=== PATIENT | male | born 1975 | race Caucasian/White ===

== ENCOUNTER 2016-08-10 17:04 | Emergency (ER) | payer OTHER ==
[2016-08-10] MEDS ORDERED: ALPRAZolam 0.5 MG TABLET PO ONE (17:34)
[2016-08-10 18:22] LABS: BASOPHILS 0.5 % (0.0-2.0); EOSINOPHILS 2.6 % (0.0-6.0); EOSINOPHILS# 0.2 X 10^3uL (0.0-0.4); HEMATOCRIT 45.2 % (42.0-54.0); HEMOGLOBIN 15.4 g/dL (14.0-18.0); LYMPHOCYTES 28.3 % (20.0-40.0); LYMPHOCYTES# 2.2 X 10^3uL (0.8-3.8); MEAN CELL VOLUME 88.1 fL (80.0-100.0); MEAN CORPUSCULAR HEMOGLOBIN 29.9 pg (29.0-35.0); MEAN PLATELET VOLUME 8.8 fL (7.4-10.4); MONOCYTES 7.4 % (2.0-10.0); MONOCYTES# 0.6 X 10^3uL (0.2-1.0); NEUTROPHILS 61.2 % (54.0-75.0); NEUTROPHILS# 4.7 X 10^3uL (2.6-6.7); PLATELET COUNT 323 X 10^3uL (130-440); RED BLOOD COUNT 5.13 X 10^6uL (4.20-6.10); RED CELL DISTRIBUTION WIDTH 11.7 % (11.5-14.5); WHITE BLOOD COUNT 7.7 X 10^3uL (3.9-10.7)
[2016-08-10 18:25] LABS: A/G RATIO 1.2; ALBUMIN 4.2 g/dL (3.5-5.0); ALKALINE PHOSPHATASE 55 U/L (38-126); ALT 32 U/L (21-72); AST 27 U/L (17-59); BILIRUBIN, TOTAL 0.7 mg/dL (0.2-1.3); BLOOD UREA NITROGEN 15 mg/dL (9-20); CALCIUM 9.3 mg/dL (8.4-10.2); CHLORIDE 104 mmol/L (98-107); EST GLOMERULAR FILTRATION RATE > 60 mL/min; GLUCOSE 94 mg/dL (70-100); POTASSIUM 3.6 mmol/L (3.5-5.1); SODIUM 140 mmol/L (137-145); TOTAL PROTEIN 7.6 g/dL (6.3-8.2)
--- NOTE | 2016-08-10 18:25 | CT REPORT ---
HISTORY: Altered mental status, disoriented COMPARISON: None. TECHNIQUE: Axial non-contrast images obtained from skull vertex through foramen magnum. Dose reduction technique was utilized. FINDINGS: BRAIN: There is no atrophy. No acute intracranial hemorrhage. No mass effect or hydrocephalus. There is n o CT evidence of infarction. BONES AND EXTRACRANIAL SOFT TISSUES: The orbits are unremarkable. The paranasal sinuses and mastoid air cells are clear. The calvarium is intact. IMPRESSION: Normal head CT. Final Electronic Signature: This report was electronically signed by Thiago Friedman MD on 08/10/2016 6:23 PM. sandra /
--- NOTE | 2016-08-10 20:48 | ER NURSING DOCUMENTATION ---
Nurse's Notes [facility] Name:Thiago Elkins Age:41 yrs Sex:Male :1975 Arrival Date:08/10/2016 Time:17:04 Bed3 Private MD:No PCP, Identified Diagnosis:Hyperventilation Syndrome;Panic Disorder Presentation: 08/10 17:09 Acuity: GARY 2 rh 17:14 Method Of Arrival: Private Vehicle sc1 17:15 Presenting complaint: Patient states: "passed out" in a parking lot. Transition of de1 care: patient was not received from another setting of care. Notified ED Physician of patient's arrival and CC Dr. Zarco notified. Care prior to arrival: Saline lock initiated. Glucose check. 92. 17:15 Method Of Arrival: EMS: 410 sc1 Triage Assessment: 17:10 Neuro: Reports a syncopal episode weakness. sc1 17:17 General: Appears in no apparent distress, well developed, well nourished, well groomed, sc1 Behavior is cooperative, pleasant. Pain: Denies pain. Historical: - Allergies: No known drug Allergies; - Home Meds: 1. cyclobenzaprine 10 mg oral tab 1 tab 3 times per day 2. escitalopram 10 mg oral tab 1 tab once daily 3. ketorolac 10 mg oral tab - Ebola Screening: : Patient negative for fever greater than or equal to 101.5 degrees Fahrenheit, and additional compatible Ebola Virus Disease symptoms. Patient denies exposure to infectious person. Patient denies travel to an Ebola-affected area in the 21 days before illness onset. No symptoms or risks identified at this time. . - Immunization history: Flu Vaccine. Screenin:56 Infectious Disease Risk None. Abuse screen: Denies threats or abuse. Nutritional sc1 screening: No deficits noted. Vital Signs: 17:02 BP 133 / 78 (auto/); sc1 17:04 Pulse Ox 89% ; sc1 20:41 BP 122 / 55; Pulse 78; Resp 18; Temp 98.4; Pulse Ox 94% on R/A; sc1 NIH Stroke Scale Scores: 17:10 NIHSS Score: 0 sc1 ED Course: 17:05 Patient arrived in ED. ds 17:05 No PCP, Identified is Private Physician. ds 17:08 Ferny Zarco MD is Attending Physician. be 17:09 Triage completed. rh 17:14 Eliana Dye, RN is Primary Nurse. [facility] [place] 17:18 Notified ED Physician of patient's arrival and chief complaint. Dr. Zarco. Arm band sc1 placed on Bed in low position Call Light in Reach Gowned HOB Elevated Side rails up x2. Labs ordered per protocol. 18:[address] 20:41 Discontinued IV intact, bleeding controlled, pressure dressing applied, No sc1 redness/swelling at site. Administered Medications: 17:27 Drug: Xanax Tablet 0.25 mg; Route: PO; de1 08/11 10:32 Follow up: Response: No adverse reaction [facility] [place] 08/10 17:27 Drug: NS 0.9% 1000 ml; Route: IV; Rate: bolus; Site: right antecubital; Delivery: sc1 [place] Tubing; 18:37 Follow up: IV Status: Completed infusion; IV Intake: 1000ml de1 18:37 Drug: NS 0.9% 1000 ml; Route: IV; Rate: 250 ml/hr; Site: right antecubital; Delivery: sc1 [place] Tubing; 20:37 Follow up: IV Status: Completed infusion; IV Intake: 1000ml de1 Point of Care Testing: Urine Dip: 18:47 pH: 6.5; ; Specific [place]: 1.015; Ketones: Negative; Glucose: Negative; Protein: sc1 Negative; Leukocytes: Negative; Nitrite: Negative ; Blood: Negative; Bilirubin: Negative ; Urobilinogen: Normal Intake: 18:37 IV: 1000ml; Total: 1000ml. sc1 20:37 IV: 1000ml; Total: 2000ml. [facility] [place] Outcome: 18:16 Discharge ordered by . be 20:41 Discharged to home ambulatory. [facility] 20:41 Condition: improved 20:41 Discharge instructions given to patient, Instructed on discharge instructions, follow up and referral plans. medication usage, Demonstrated understanding of instructions, medications, Prescriptions given X 1. 20:47 Patient left the ED. [facility] [place] 08/11 11:40 Discharge F/U Call: Unable to reach: no answer NIH Stroke Scale - NIH Stroke Score Date: 08/10/2016 Time: 17:10 Total Score = 0 1a. Level of Consciousness (LOC) - 0(Alert) 1b. Level of Consciousness (LOC) (Year & Age) - 0(Both) 1c. LOC Commands (Open & Closes Eyes/Director And Professor) - 0(Both) 2. Best Gaze (Lateral Gaze Paresis) - 0(Normal) 3. Visual Field Loss - 0(No visual loss) 4. Facial Palsy - 0(Normal) 5a. Left Arm: Motor (10-second hold) - 0(No drift) 5b. Right Arm: Motor (10-second hold) - 0(No drift) 6a. Left Leg: Motor (5-second hold ? always test supine) - 0(No drift) 6b. Right Leg: Motor (5-second hold ? always test supine) - 0(No drift) 7. Limb Ataxia (finger/nose & heel/allen ? test with eyes open) - 0(Absent) 8. Sensory Loss (pinprick arms/legs/face) - 0(Normal) 9. Best Language: Aphasia (description/naming/reading) - 0(No aphasia) 10. Dysarthria (speech clarity ? read or repeat words) - 0(Normal) 11. Extinction and Inattention (visual/tactile/auditory/spatial/personal) - 0(No abnormality) Initials: sc1 Signatures: Rand Watkins RN Eliana Reyes RN RN sc1 Donnell, Bing, Reg Reg Ferny Carreon MD MD be Norman, David dnn Hofsess, Rachel
--- NOTE | 2016-08-10 20:48 | ER PHYSICIAN DOCUMENTATION ---
Physician Documentation [facility] Name:Thiago Elkins Age:41 yrs Sex:Male :1975 Arrival Date:08/10/2016 Time:17:04 Bed3 Private MD:No PCP, Identified ED Ferny German Disposition: 08/10 15:10 Critical Care: not applicable. be Disposition: 08/10/16 18:16 Discharged to Home/Self Care. Impression: Hyperventilation Syndrome, Panic Disorder. - Condition is Good. - Discharge Instructions: HYPERVENTILATION SYNDROME, PANIC ATTACK. - Prescriptions for Xanax 0.25 mg Oral - take 1 tablet by ORAL route every 8 hours As needed SL instead of PO, please.; 20 tablet. - Medical Reconciliation form form. - Follow up: Private Physician; When: As needed; Reason: Recheck today's complaints, Continuance of care. - Problem is an acute exacerbation. - Symptoms have improved. HPI: 17:10 This 41 yrs old Male presents to ER via EMS with complaints of Altered Mental be Status. 17:10 Onset: The symptom(s)/episode began/occurred acutely, just prior to arrival, assoc/w be numbness, tingling and disorientation after becoming lost and becoming angry. Historical: - Allergies: No known drug Allergies; - Home Meds: 1. cyclobenzaprine 10 mg oral tab 1 tab 3 times per day 2. escitalopram 10 mg oral tab 1 tab once daily 3. ketorolac 10 mg oral tab - Ebola Screening: : Patient negative for fever greater than or equal to 101.5 degrees Fahrenheit, and additional compatible Ebola Virus Disease symptoms. Patient denies exposure to infectious person. Patient denies travel to an Ebola-affected area in the 21 days before illness onset. No symptoms or risks identified at this time. . - Immunization history: Flu Vaccine. ROS: 17:10 Constitutional: Positive for disorientation, Negative for LOC, seizure, incontinence, be focal deficit, chest pain. 17:10 Neuro: Positive for altered mental status, numbness, tingling, Negative for headache, loss of consciousness, seizure activity. 17:10 All other systems are negative. Exam: 17:10 Head/Face: Normocephalic, atraumatic. be Eyes: Pupils equal round and reactive to light, extra-ocular motions intact. Lids and lashes normal. Conjunctiva and sclera are non-icteric and not injected. Cornea within normal limits. Periorbital areas with no swelling, redness, or edema. ENT: Nares patent. No nasal discharge, no septal abnormalities noted. Tympanic membranes are normal and external auditory canals are clear. Oropharynx with no redness, swelling, or masses, exudates, or evidence of obstruction, uvula midline. Mucous membranes moist. Neck: Trachea midline, no thyromegaly or masses palpated, and no cervical lymphadenopathy. Supple, full range of motion without nuchal rigidity, or vertebral point tenderness. No Meningismus. Chest/axilla: Normal chest wall appearance and motion. Nontender with no deformity. No lesions are appreciated. Cardiovascular: Regular rate and rhythm with a normal S1 and S2. No gallops, murmurs, or rubs. Normal PMI, no JVD. No pulse deficits. Respiratory: Lungs have equal breath sounds bilaterally, clear to auscultation and percussion. No rales, rhonchi or wheezes noted. No increased work of breathing, no retractions or nasal flaring. Abdomen/GI: Soft, non-tender, with normal bowel sounds. No distension or tympany. No guarding or rebound. No evidence of tenderness throughout. Skin: Warm, dry with normal turgor. Normal color with no rashes, no lesions, and no evidence of cellulitis. MS/ Extremity: Pulses equal, no cyanosis. Neurovascular intact. Full, normal range of motion. 17:10 Psych: Awake, alert, with orientation to person, place and time. Behavior, mood, and be affect are within normal limits. 17:10 Constitutional: The patient appears alert, awake, non-diaphoretic, non-toxic, well developed, well hydrated, well groomed, well nourished. 17:10 Neuro: Orientation: is normal, to person, place & time. Vital Signs: 17:02 BP 133 / 78 (auto/); sc1 17:04 Pulse Ox 89% ; sc1 20:41 BP 122 / 55; Pulse 78; Resp 18; Temp 98.4; Pulse Ox 94% on R/A; sc1 NIH Stroke Scale Scores: 17:10 NIHSS Score: 0 sc1 MDM: 15:10 Differential Diagnosis: CVA, hypoglycemia, intracranial bleed, seizure, volume be depletion, panic attack. Data reviewed: vital signs, nurses notes, EMS record, lab test result(s), EKG, radiologic studies, CT scan, and as a result, I will discharge patient, administer IV fluids, NS bolus, prescribe sedation medication, Xanax. 17:08 Patient medically screened. be 18:[address] 18:43 ECG:. be 08/10 18:24 Order name: CBC AUTO DIF, MDIF/RMOR IF IND; Complete Time: 08:35 EDMS 08/11 08:34 Interpretation: Normal. be 08/10 18:26 Order name: COMPREHENSIVE METABOLIC PANEL; Complete Time: 08:35 EDMS 07 08:34 Interpretation: Normal. be 08/10 18:27 Order name: CAT SCAN; HEAD W/O CON [id number]; Complete Time: 08:35 EDMS 07 08:34 Interpretation: Normal. be 08/10 17:16 Order name: EKG - 12 Lead; Complete Time: 17:43 be EC:43 Rate is 86 beats/min. Rhythm is regular, Normal Sinus Rhythm. QRS [place] is Normal. SD be interval is normal. QRS interval is normal. QT interval is normal. No Q waves. T waves are Normal. No ST changes noted. Reviewed by me. Dispensed Medications: 17:27 Drug: Xanax Tablet 0.25 mg; Route: PO; [facility] 08/11 10:32 Follow up: Response: No adverse reaction [facility] [place] 08/10 17:27 Drug: NS 0.9% 1000 ml; Route: IV; Rate: bolus; Site: right antecubital; Delivery: sc1 [place] Tubing; 18:37 Follow up: IV Status: Completed infusion; IV Intake: 1000ml sc1 18:37 Drug: NS 0.9% 1000 ml; Route: IV; Rate: 250 ml/hr; Site: right antecubital; Delivery: sc1 [place] Tubing; 20:37 Follow up: IV Status: Completed infusion; IV Intake: 1000ml sc1 Point of Care Testing: Urine Dip: 18:47 pH: 6.5; ; Specific [place]: 1.015; Ketones: Negative; Glucose: Negative; Protein: sc1 Negative; Leukocytes: Negative; Nitrite: Negative ; Blood: Negative; Bilirubin: Negative ; Urobilinogen: Normal NIH Stroke Scale - NIH Stroke Score Date: 08/10/2016 Time: 17:10 Total Score = 0 1a. Level of Consciousness (LOC) - 0(Alert) 1b. Level of Consciousness (LOC) (Year & Age) - 0(Both) 1c. LOC Commands (Open & Closes Eyes/Road Freight Firer) - 0(Both) 2. Best Gaze (Lateral Gaze Paresis) - 0(Normal) 3. Visual Field Loss - 0(No visual loss) 4. Facial Palsy - 0(Normal) 5a. Left Arm: Motor (10-second hold) - 0(No drift) 5b. Right Arm: Motor (10-second hold) - 0(No drift) 6a. Left Leg: Motor (5-second hold ? always test supine) - 0(No drift) 6b. Right Leg: Motor (5-second hold ? always test supine) - 0(No drift) 7. Limb Ataxia (finger/nose & heel/allen ? test with eyes open) - 0(Absent) 8. Sensory Loss (pinprick arms/legs/face) - 0(Normal) 9. Best Language: Aphasia (description/naming/reading) - 0(No aphasia) 10. Dysarthria (speech clarity ? read or repeat words) - 0(Normal) 11. Extinction and Inattention (visual/tactile/auditory/spatial/personal) - 0(No abnormality) Initials: sc1 Signatures: Rand Watkins, Eliana Reyes RN, RN RN sc1 Ferny Zarco MD MD be
== END 2016-08-10 20:48 | disposition home or self-care (01) ==
LOC: ER 17:04
DX: F45.8 Other somatoform disorders (principal); F41.0 Panic disorder [episodic paroxysmal anxiety]; R41.82 Altered mental status, unspecified; R41.0 Disorientation, unspecified; Z79.899 Other long term (current) drug therapy; Z74.3 Need for continuous supervision
CPT/HCPCS: 70450; 80053; 85025; 93005; 96360; 96361; 99284; A0425; A0429